=== PATIENT | female | born 1965 | race Caucasian/White ===

== ENCOUNTER 2018-08-01 02:11 | Observation (INO) | payer OTHER ==
[2018-08-01] MEDS ORDERED: ONDANSETRON 4 MG/2 ML VIAL IVP ONE (02:18)
[2018-08-01] MEDS ORDERED: NS 1,000 ML IV ONE ×2 (02:18→05:34)
--- NOTE | 2018-08-01 02:18 | EDPHY ---
H & P Time Seen by Provider: 08/01/18 02:18 HPI/ROS: HPI CHIEF COMPLAINT: Nausea vomiting right upper quadrant abdominal pain, epigastric abdominal pain after eating a hamburger. HISTORY OF PRESENT ILLNESS: 52-year-old female, otherwise healthy however has had a history of thyroid disease, presents emergency room epigastric right upper quadrant abdominal pain. This started around 530 this evening after eating a hamburger. It is now 230 in the morning. Patient arrived to the emergency room complaining of 9/10 epigastric right upper quadrant abdominal pain is rather constant. She had nausea vomiting earlier tonight multiple episodes. No blood. Denies fever. Denies chest pain or shortness of breath main complaint epigastric right upper quadrant abdominal pain. Patient states that she does not typically eat meat however she went to [employer] and bought hamburger meat, she then cooked it on her stove and then put avocados slices over ate it. This around this around 5-530. Shortly after she started developing pain nausea vomiting. She arrives to the emergency room at 2:30 a.m. In the morning as the pain has continued. Past Medical History: Thyroid disease Past Surgical History: Parotid surgery, hysterectomy Social History: Denies drugs alcohol tobacco. Family History: Noncontributory ROS REVIEW OF SYSTEMS: 10 Systems were reviewed and negative with the exception of the elements mentioned in the history of present illness. Exam Constitutional triage nursing summary reviewed, vital signs reviewed, awake/ alert. Eyes normal conjunctivae and sclera, EOMI, PERRLA. HENT normal inspection, atraumatic, moist mucus membranes, no epistaxis, neck supple/ no meningismus, no raccoon eyes. Respiratory clear to auscultation bilaterally, normal breath sounds, no respiratory distress, no wheezing. Cardiovascular rate normal, regular rhythm, no murmur, no edema, distal pulses normal. Gastrointestinal mild tender palpation right upper quadrant, epigastric, reproducible on exam, no rebound, no guarding, normal bowel sounds, no distension, no pulsatile mass. Genitourinary no CVA tenderness. Musculoskeletal no midline vertebral tenderness, full range of motion, no calf swelling, no tenderness of extremities, no meningismus, good pulses, neurovascularly intact. Skin pink, warm, & dry, no rash, skin atraumatic. Neurologic awake, alert and oriented x 3, AAOx3, moves all 4 extremities equally, motor intact, sensory intact, CN II-XII intact, normal cerebellar, normal vision, normal speech. Psychiatric normal mood/affect. Heme/Lymph/Immune no lymphadenopathy. Differential Diagnosis: Differential diagnosis includes but is not limited to and in no particular order: Bowel obstruction, appendicitis, gallbladder disease, diverticulitis, colitis, enteritis, perforated viscus, gastritis, GERD , esophagitis, urinary tract infection, pyelonephritis, kidney stones Medical Decision Making: Plan for this patient IV establishment IV fluid bolus , IV Zofran for nausea, IV Dilaudid 0.5 mg for pain control, ultrasound right upper quadrant rule out gallbladder disease, check lipase, LFTs, bilirubin, CBC , chemistry, urine, EKG and point care trop I think this is unlikely to be acute coronary syndrome given her reproducible abdominal pain on exam. Will re- evaluate. Re-evaluation: EKG interpretation by me on record in [facility] system. Impression time of EKG 2:32 a.m., sinus rhythm rate of 64 no signs of acute ischemia. Ultrasound called to me by Dr. Bruner. For limited meter dilated gallbladder wall with gallbladder distension trace fluid, possible acalculous cholecystitis. No significant stranding or inflammation around the gallbladder, no gallstones, no significant wall thickening. Patient re-evaluated at 3:42 a.m. Patient still has right upper quadrant abdominal pain 0529: This patient continues to have ongoing right upper quadrant abdominal pain. She has been monitored here multiple hours in the emergency room and continues to have intermittent abdominal pain. He gets better with IV pain medicine and then returns. She has not had a fever here no vomiting. The ultrasound is concerning for acalculous acute cholecystitis. I will consult surgery. IV Invanz ordered. Another dose of IV Dilaudid. Patient has had 2 L of fluid. NPO. Plan for admission for possible acalculous cholecystitis. I consult Dr. Giron 0533 a.m.. Requesting admission to himself. As well as HIDA scan. Patient be admitted to him med surgical. HIDA scan ordered. IV Invanz ordered. IV Dilaudid for pain control. Updated patient she agrees. Source: Patient Constitutional: Initial Vital Signs Temperature (C) 36.2 C 08/01/18 02:16 Heart Rate 72 08/01/18 02:16 Respiratory Rate 16 08/01/18 02:16 Blood Pressure 141/82 H 08/01/18 02:16 O2 Sat (%) 98 08/01/18 02:16 O2 Delivery Mode Room Air Allergies/Adverse Reactions: gluten Allergy (Verified 08/01/18 02:15) Milk Containing Products [dairy] Allergy (Verified 08/01/18 02:15) Home Medications: Medication Instructions Recorded Cholecalciferol Vit D3 [Vitamin D3 1,000 units PO DAILY 08/01/18 (*)] Estradiol [Estradiol 1 MG (*)] 1 mg PO DAILY@12 08/01/18 Herbals/Supplements -Info Only 1 each PO DAILY 08/01/18 Levothyroxine [Synthroid 50 mcg 50 mcg PO DAILY06 08/01/18 (*)] Multivitamins [Multivitamin (*)] 1 each PO DAILY 08/01/18 Selenium [Selenium 200mcg (*)] 200 mcg PO DAILY 08/01/18 Medical Decision Making - Diagnostics Imaging Results: Imaging Impressions Abdomen Ultrasound 08/01/18 02:27 Impression: Gallbladder is distended with mild gallbladder wall thickening and pericholecystic fluid. No cholelithiasis. Potentially, this could be acalculous cholecystitis. Results called and discussed with Del Yan MD on 08/01/2018 at 0331 hours. - Data Points Laboratory Results: Laboratory Results 08/01/18 02:30 08/01/18 02:30 Medications Given: Discontinued Medications Hydromorphone HCl (Dilaudid) 0.5 mg IVP EDNOW ONE Stop: 08/01/18 02:28 Last Admin: 08/01/18 02:32 Dose: 0.5 mg Hydromorphone HCl (Dilaudid) 0.5 mg IVP EDNOW ONE Stop: 08/01/18 03:34 Last Admin: 08/01/18 03:34 Dose: 0.5 mg Hydromorphone HCl (Dilaudid) 0.5 mg IVP EDNOW ONE Stop: 08/01/18 05:29 Last Admin: 08/01/18 05:40 Dose: 0.5 mg Sodium Chloride (Ns) 1,000 mls @ 0 mls/hr IV EDNOW ONE; Wide Open PRN Reason: Protocol Stop: 08/01/18 02:19 Last Admin: 08/01/18 02:27 Dose: 1,000 mls Ertapenem 1 gm/ Sodium (Chloride) 100 mls @ 200 mls/hr IV EDNOW ONE PRN Reason: Protocol Stop: 08/01/18 05:57 Last Admin: 08/01/18 06:21 Dose: 100 mls Sodium Chloride (Ns) 1,000 mls @ 0 mls/hr IV ONCE ONE PRN Reason: Wide Open Stop: 08/01/18 05:35 Last Admin: 08/01/18 05:38 Dose: 1,000 mls Ketorolac Tromethamine (Toradol) 15 mg IVP Q6H ELAINE Stop: 08/06/18 08:59 Last Admin: 08/01/18 15:43 Dose: 15 mg Ondansetron HCl (Zofran) 4 mg IVP EDNOW ONE Stop: 08/01/18 02:19 Last Admin: 08/01/18 02:27 Dose: 4 mg Ondansetron HCl (Zofran) 4 mg IVP Q4HRS PRN PRN Reason: Nausea/Vomiting, Can't Take PO Stop: 01/28/19 08:32 Last Admin: 08/01/18 15:42 Dose: 4 mg Point of Care Test Results: Chemistry 08/01/18 02:35 POC Troponin I 0.00 ng/mL ng/mL (0.00-0.08) Departure - Departure Disposition: [facility] Inpatient Acute Clinical Impression: Acute cholecystitis Abdominal pain Qualifiers: Abdominal location: unspecified location Qualified Code(s): R10.9 - Unspecified abdominal pain Condition: Good
[2018-08-01] MEDS ORDERED: HYDROmorphONE/DILAUDID 2 MG/ML INJ IVP ONE ×3 (02:27→05:28)
[2018-08-01 02:42] LABS: PLATELET COUNT 192 10^3/uL (150-400)
[2018-08-01 02:49] LABS: INR 0.87 (0.83-1.16); PROTIME(PATIENT) 12.1 SEC (12.0-15.0)
[2018-08-01] MEDS ORDERED: HYDROmorphONE/DILAUDID 1 MG/ML INJ ONE (03:31)
[2018-08-01] MEDS ORDERED: ERTAPENEM 1 GM in NS 100 ML IV ONE (05:28)
[2018-08-01] MEDS: ONDANSETRON 4 MG/2 ML VIAL IVP PRN ×2 (08:51→15:42)
[2018-08-01] MEDS: KETOROLAC 15 MG/1 ML SDV IVP SCH ×2 (09:08→15:43)
[2018-08-01 11:12] VITALS: BP 115/72
[2018-08-01] MEDS ORDERED: KETOROLAC 15 MG/1 ML SDV IVP SCH (12:00)
--- NOTE | 2018-08-01 12:32 | GHP ---
DATE OF ADMISSION: 08/01/2018 CHIEF COMPLAINT: Epigastric and right upper quadrant pain. HISTORY OF PRESENT ILLNESS: This is a 52-year-old female, who presented early this morning with 9/10 epigastric and right upper quadrant pain. This was triggered after eating a hamburger. She also re ports nausea and vomiting earlier in the night. She denies fever. She denies constipation, diarrhea . An abdominal ultrasound revealed a distended gallbladder with mild gallbladder wall thickening and pericholecystic fluid. No cholelithiasis. Potentially, this could be acalculous cholecystitis. PAST MEDICAL HISTORY: Hypothyroidism. PAST SURGICAL HISTORY: Parathyroidectomy, hysterectomy. SOCIAL HISTORY: The patient is a nonsmoker and denies recreational drug use. FAMILY HISTORY: Noncontributory. ALLERGIES: Gluten and milk. MEDICATIONS: Levothyroxine. REVIEW OF SYSTEMS: Ten-point review of systems was performed and is negative, aside from what is in the HPI. PHYSICAL EXAM: GENERAL: Well-appearing female lying in hospital bed, in no acute distress. HEENT: Pupils are equal and round. Head is normocephalic, atraumatic. Mucous membranes are moist. No navya ss hearing deficits. CARDIAC: Regular rate and rhythm, no click, murmurs, or rubs. RESPIRATORY: C lear to auscultation bilaterally. No increased work of breathing. ABDOMEN: Soft, tender to palpati on in the right upper quadrant and epigastric area, normoactive bowel sounds. MUSCULOSKELETAL: Move s all extremities equally. SKIN: Warm and dry, no rash, no jaundice. NEUROLOGIC: Awake, alert, an d oriented x3. PSYCHIATRIC: Appropriate mood and affect. IMPRESSION/PLAN: This is a patient, who presented with epigastric and right upper quadrant pain very early this morning. Abdominal ultrasound revealed mild gallbladder wall thickening and pericholecys tic fluid, however, did not reveal definitive cholelithiasis. We would like her to have a HIDA scan to further differentiate that this is her gallbladder that is causing her pain. Because she had Dila udid at 5:30 a.m. this morning, the HIDA scan will take place at approximately 1:30 p.m. this afterno on. We then plan to take her to the operating room for a laparoscopic cholecystectomy. All risks an d options have been discussed. Risks of surgery include, but are not limited to, infection, bleeding , damage to surrounding structures, including the bile duct and bowel, heart attack, and . Linda ent understands and wishes to proceed. /[id number]/MODL
[2018-08-01] MEDS ORDERED: cefOXitin SODIUM 2 GM in NS 100 ML IV ONE (14:30)
--- NOTE | 2018-08-01 16:33 | ASMTCMCOM ---
CM Note CM Note Notes: 08/01/2018 Case Management Note Pt admitted for RUQ abdominal pain with plan for cholecystectomy. Met w/pt to discuss discharge needs. There are no case management d/c needs identified d/t pt age, strong family support system, employment status and independence with ADL's prior to admission. Pt boyfriend is Unruly Santo [phone]. Case Managment d/c poc: independent with follow up as directed. Case Management available if needs change. Date Signed: 08/01/2018 04:32 PM Electronically Signed By:Maria T Shields RN
--- NOTE | 2018-08-01 17:42 | SOAPPROG ---
SOAP Progress Note Assessment/Plan: Assessment: DOING MUCH BETTER THIS P.M. WITH NO PAIN AT ALL IN NO FEVER AND NO ICTERUS HIDA SCAN WAS NOT COMPLETELY CONCLUSIVE AND SHE WAS UNABLE TO DO THE EJECTION FRACTION TEST ABDOMEN SOFT NONTENDER/CHEST CLEAR/COR REGULAR RHYTHM/HEENT NONICTERIC IN THE FACE OF IMPROVED SYMPTOMS AND LACK OF GALLSTONES AND SOME FILLING ON HIDA SCAN WILL POSTPONE SURGERY AND TREAT CONSERVATIVELY RISKS AND OPTIONS FULLY DISCUSSED INCLUDING RECURRENCE OF SYMPTOMS AND EVENTUAL NEED FOR CHOLECYSTECTOMY Plan: CLEAR LIQUIDS/HOME ON ORAL ANTIBIOTICS/FOLLOW-UP IN THE OFFICE NEXT WEEK 08/01/18 17:37 Objective: Vital Signs Temp Pulse Resp BP Pulse Ox 36.5 C 63 18 115/72 95 08/01/18 11:08 08/01/18 11:08 08/01/18 11:08 08/01/18 11:08 08/01/18 11:08 07/31/18 08/01/18 08/02/18 05:59 05:59 05:59 Intake Total 1999 Balance 1999 PT 12.1 SEC (12.0-15.0) 08/01/18 02:30 INR 0.87 (0.83-1.16) 08/01/18 02:30 ICD10 Worksheet Patient Problems: Problems Problem Status Onset Abdominal pain Acute Acute cholecystitis Acute
--- NOTE | 2018-08-02 08:56 | CPEKG ---
Test Reason : OPEN Blood Pressure : / mmHG Vent. Rate : 064 BPM Atrial Rate : 064 BPM P-R Int : 193 ms QRS Dur : 120 ms QT Int : 469 ms P-R-T Axes : 055 036 055 degrees QTc Int : 484 ms Sinus rhythm Nonspecific intraventricular conduction delay Confirmed by Del Yan ([id number]) on 08/02/2018 8:55:57 AM Referred By: Confirmed By:Del Yan
== END 2018-08-01 18:47 | disposition home or self-care (01) ==
LOC: MERGE 05:32 → UNMERGE 05:32 → F2W 06:28
PROVIDERS: ADMIT Surgery; ATTEND Surgery
DX: R10.11 Right upper quadrant pain (principal); R10.13 Epigastric pain
CPT/HCPCS: 76705; 78226; 93005; A9537; G0378; 84484-PO; 96374; J0694; J1170; J1335; J1885; J2405

== ENCOUNTER 2018-09-13 14:20 | Emergency (ER) | payer OTHER ==
[2018-09-13] MEDS ORDERED: NS 1,000 ML IV ONE (15:08)
[2018-09-13] MEDS ORDERED: ONDANSETRON 4 MG/2 ML VIAL IVP ONE (15:08)
--- NOTE | 2018-09-13 15:14 | EDPHY ---
H & P Stated Complaint: Abdo pain, same as gallbladder pain. Time Seen by Provider: 09/13/18 15:11 HPI/ROS: HPI: This is a 53-year-old female who presents with Chief Complaint: Abdo pain, same as gallbladder pain. Location: Epigastric and right upper quadrant Quality: Pain Duration: Since last night Signs and Symptoms: no fever, + nausea, no vomiting, no hematemesis, no blood in stool, no abdominal bloating, no diarrhea, no back pain, no urinary symptoms , no vaginal bleeding/discharge, no indigestion, no chest pain, no shortness of breath Timing: Acute, constant Severity: 03/28 Context: Patient reports that yesterday evening she started to experience burning and sharp constant pain in her epigastric and right upper quadrant. She reports that her stomach "does not feel right."She believes that this is similar to last month when she had her "gallbladder attack." Patient reports that she advised by low-fat diet. Chart review shows that she was seen here on 08/01/2018 with an admission unable to obtain HIDA scan as allergy to contrast and ultrasound showed possibility of acalculous cholecystitis. Patient took Zofran and last night to avoid of vomiting which helped relieved her nausea. Modifying Factors: Low-fat diet and Zofran Comment: ROS: A comprehensive 10 system review of systems is otherwise negative aside from elements mentioned in the history of present illness. MEDICAL/SURGICAL/SOCIAL HISTORY: Medical/Surgical history: HYSTERECTOMY, HASHIMOTOS-synthroid, L PAROTID GLAND REMOVAL. Social history: Never smoked. Family history noncontributory. CONSTITUTIONAL: Moderate distress, well-developed, well-nourished middle-aged white female, awake and alert, nontoxic in appearance HEENT: Atraumatic and normocephalic, PERRL, EOMI. Nares patent; no rhinorrhea; no nasal mucosal edema. Tympanic membranes clear. Oropharynx clear, no exudate and moist pink mucosa. Airway patent. No lymphadenopathy. No meningismus. Cardiovascular: Normal S1/S2, regular rate, regular rhythm, without murmur rub or gallop. PULMONARY/CHEST: Symmetrical and nontender. Clear to auscultation bilaterally. Good air movement. No accessory muscle usage. ABDOMEN: Soft, nondistended, moderate right upper quadrant tenderness and epigastric tenderness, no rebound, no guarding, no peritoneal signs, no masses or organomegaly. No CVAT. EXTREMITIES: 2/2 pulses, strength 5/5, no deformities, no clubbing, no cyanosis or edema. NEUROLOGICAL: no focal neuro deficits. GCS 15. SKIN: Warm and dry, no erythema. no rash. Good capillary refill. Source: Patient, Old records Exam Limitations: No limitations - Personal History Current Tetanus/Diphtheria Vaccine: Unsure Current Tetanus Diphtheria and Acellular Pertussis (TDAP): Unsure Tetanus Vaccine Date: 05/2010 - Medical/Surgical History Hx Asthma: No Hx Chronic Respiratory Disease: No Hx Diabetes: No Hx Cardiac Disease: No Hx Renal Disease: No Hx Cirrhosis: No Hx Alcoholism: No Hx HIV/AIDS: No Hx Splenectomy or Spleen Trauma: No Other PMH: HYSTERECTOMY, HASHIMOTOS-synthroid, L PAROTID GLAND REMOVAL. - Social History Smoking Status: Never smoked Constitutional: Initial Vital Signs Temperature (C) 36.4 C 09/13/18 14:45 Heart Rate 48 L 09/13/18 14:45 Respiratory Rate 16 09/13/18 14:45 Blood Pressure 123/78 H 09/13/18 14:45 O2 Sat (%) 97 09/13/18 14:45 O2 Delivery Mode Room Air Allergies/Adverse Reactions: gluten Allergy (Verified 09/13/18 14:44) Milk Containing Products [dairy] Allergy (Verified 09/13/18 14:44) Home Medications: Medication Instructions Recorded NK [No Known Home Meds] 06/12/14 Cholecalciferol Vit D3 [Vitamin D3 1,000 units PO DAILY 08/01/18 (*)] Estradiol [Estradiol 1 MG (*)] 1 mg PO DAILY@12 08/01/18 Herbals/Supplements -Info Only 1 each PO DAILY 08/01/18 Levothyroxine [Synthroid 50 mcg 50 mcg PO DAILY06 08/01/18 (*)] Multivitamins [Multivitamin (*)] 1 each PO DAILY 08/01/18 Selenium [Selenium 200mcg (*)] 200 mcg PO DAILY 08/01/18 Ondansetron Odt [Zofran Odt 4 mg 4 mg PO Q4 PRN #12 tab 09/13/18 (*)] oxyCODONE/APAP 5/325 [Percocet 1 - 2 tab PO Q4H PRN #12 tab 09/13/18 5/325 (*)] Medical Decision Making - Diagnostics Imaging Results: Imaging Impressions Abdomen Ultrasound 09/13/18 15:11 Impression: 1. Chronic distention of the gallbladder without gallbladder wall thickening and pericholecystic fluid without gallstones. Ejection fraction from previous HIDA scan cannot be performed secondary to patient's food ALLERGY. Consider gallbladder wall dysmotility or chronic cholecystitis. ED Course/Re-evaluation: Vital signs reviewed and stable. No systemic signs. IV access, laboratory studies, ultrasound ordered Patient given 1 L normal saline, IV morphine 6 mg, IV Zofran 1555: Labs reviewed. No signs of leukocytosis/anemia/platelet dysfunction/JOHN/ elevated LFTs/electrolyte imbalance/pancreatitis. 1638: Called by Dr. Cral, radiologist, who reports ultrasound is similar to the one in July with not thickened gallbladder wall, + pericholecystic fluid , + distended gallbladder consistent with chronic cholecystitis versus gallbladder dysmotility 1639: Long discussion with patient regarding decision to consult surgery for cholecystectomy. After discussing the risks of cholecystitis, sepsis, perforation, reports that she is feeling better. She reports that her laboratory studies are within normal limits and the ultrasound is the same as last month. She reports after discussion with her to be discharged home with more Zofran and pain medications and will call Dr. Giron on Saturday to have her gallbladder removed outpatient. Extremely concerned about the financial strain of emergent surgery. She reports that she has no pain at this time. ED decision to consult surgery canceled. This patient was seen under the supervision of my secondary supervising physician. I evaluated care for this patient independently. Discussed this patient with Dr. Alonso who did not see the patient. Differential Diagnosis: Abdominal pain including but not limited to appendicitis, cholecystitis, gastritis and urinary tract infection. - Data Points Laboratory Results: Laboratory Results 09/13/18 15:25 09/13/18 15:25 09/13/18 09/13/18 09/13/18 15:25 15:25 15:25 WBC 7.41 10^3/uL 10^3/uL (3.80-9.50) RBC 4.75 10^6/uL 10^6/uL (4.18-5.33) Hgb 13.9 g/dL g/dL (12.6-16.3) Hct 42.5 % % (38.0-47.0) MCV 89.5 fL fL (81.5-99.8) MCH 29.3 pg pg (27.9-34.1) MCHC 32.7 g/dL g/dL (32.4-36.7) RDW 13.0 % % (11.5-15.2) Plt Count 184 10^3/uL 10^3/uL (150-400) MPV 10.2 fL fL (8.7-11.7) Neut % (Auto) 73.8 % % (39.3-74.2) Lymph % (Auto) 17.4 % % (15.0-45.0) [place] % (Auto) 7.2 % % (4.5-13.0) Eos % (Auto) 1.1 % % (0.6-7.6) Baso % (Auto) 0.4 % % (0.3-1.7) Nucleat RBC Rel Count 0.0 % % (0.0-0.2) Absolute Neuts (auto) 5.47 10^3/uL 10^3/uL (1.70-6.50) Absolute Lymphs (auto) 1.29 10^3/uL 10^3/uL (1.00-3.00) Absolute Monos (auto) 0.53 10^3/uL 10^3/uL (0.30-0.80) Absolute Eos (auto) 0.08 10^3/uL 10^3/uL (0.03-0.40) Absolute Basos (auto) 0.03 10^3/uL 10^3/uL (0.02-0.10) Absolute Nucleated RBC 0.00 10^3/uL 10^3/uL (0-0.01) Immature Gran % 0.1 % % (0.0-1.1) Immature Gran # 0.01 10^3/uL 10^3/uL (0.00-0.10) Sodium 139 mEq/L mEq/L (135-145) Potassium 3.9 mEq/L mEq/L (3.5-5.2) Chloride 106 mEq/L mEq/L (97-110) Carbon Dioxide 25 mEq/l mEq/l (22-31) Anion Gap 8 mEq/L mEq/L (6-14) BUN 12 mg/dL mg/dL (7-23) Creatinine 0.8 mg/dL mg/dL (0.6-1.0) Estimated GFR > 60 Glucose 127 mg/dL H mg/dL (70-100) Calcium 8.9 mg/dL mg/dL (8.5-10.4) Total Bilirubin 0.5 mg/dL mg/dL (0.1-1.4) Conjugated Bilirubin 0.3 mg/dL mg/dL (0.0-0.5) Unconjugated Bilirubin 0.2 mg/dL mg/dL (0.0-1.1) AST 28 IU/L IU/L (14-46) ALT 25 IU/L IU/L (9-52) Alkaline Phosphatase 60 IU/L IU/L (38-126) Total Protein 7.0 g/dL g/dL (6.3-8.2) Albumin 4.3 g/dL g/dL (3.5-5.0) Lipase 112 IU/L IU/L (23-300) Beta HCG, Qual NEGATIVE Medications Given: Discontinued Medications Sodium Chloride (Ns) 1,000 mls @ 0 mls/hr IV EDNOW ONE; Wide Open PRN Reason: Protocol Stop: 09/13/18 15:09 Last Admin: 09/13/18 15:42 Dose: 1,000 mls Morphine Sulfate (Morphine) 6 mg IVP EDNOW ONE Stop: 09/13/18 15:09 Last Admin: 09/13/18 15:42 Dose: 6 mg Ondansetron HCl (Zofran) 4 mg IVP EDNOW ONE Stop: 09/13/18 15:09 Last Admin: 09/13/18 15:42 Dose: 4 mg Departure - Departure Disposition: Home, Routine, Self-Care Clinical Impression: Gallbladder attack, Dyskinesia of gallbladder Condition: Good Instructions: Biliary Colic (ED), Low Fat Diet (ED), Laparoscopic Cholecystectomy (DC) Additional Instructions: Consume a minimum of 8-10 glasses of water or electrolyte fluid replacement drinks that include Gatorade, Powerade, Pedialyte. Eat a bland diet for the next 48 hours and then slowly advance as tolerated. Take Zofran 1 tab every 4 hours as needed for nausea, vomiting. Take Percocet 1-2 tabs every 4-6 hours as needed for severe/breakthrough pain. Called Dr. Giron office on Saturday to schedule an appointment in the next 2-3 days to discuss removal of gallbladder. Return to the Emergency Room if symptoms do not resolve in the next 48-72 hours , you spike a fever > 102 F, or experience intractable abdominal pain/nausea/ vomiting. Referrals: KITTY BAHENA [Primary Care Provider] - As per Instructions Brett Giron MD [Medical Doctor] - As per Instructions Prescriptions: Ondansetron Odt [Zofran Odt 4 mg (*)] 4 mg PO Q4 PRN #12 tab PRN Reason: Nausea/Vomiting, Use 1st oxyCODONE/APAP 5/325 [Percocet 5/325 (*)] 1 - 2 tab PO Q4H PRN #12 tab PRN Reason: Pain, Severe
[2018-09-13 15:40] LABS: PLATELET COUNT 184 10^3/uL (150-400)
[2018-09-13] MEDS ORDERED: POLYETHYLENE GLYCOL 3350 17 GM PKT ONE (16:45)
[2018-09-13 17:12] VITALS: BP 122/78
== END 2018-09-13 17:11 | disposition home or self-care (01) ==
DX: K82.8 Other specified diseases of gallbladder (principal); E86.9 Volume depletion, unspecified
CPT/HCPCS: 96374; J2270; J2405

== ENCOUNTER → 2018-09-18 | Outpatient (CLI) | payer OTHER ==
[~2018-09-18] MED LIST: SINCALIDE 5 MCG VIAL IV ONE
== END ==
LOC: FIMAGING 11:14
PROVIDERS: ATTEND Surgery
DX: R10.11 Right upper quadrant pain (principal)
CPT/HCPCS: A9537; J2805

== ENCOUNTER 2019-01-03 15:10 | Emergency (ER) | payer OTHER ==
[2019-01-03 15:18] VITALS: BP 144/76
[2019-01-03] MEDS ORDERED: TDAP ADULT 0.5 ML INJ (BOOSTRIX) IM ONE (15:27)
--- NOTE | 2019-01-03 15:27 | EDPHY ---
H & P Stated Complaint: R finger lac Time Seen by Provider: 01/03/19 15:20 HPI/ROS: HPI: This is a 53-year-old female who presents with Chief Complaint: Right little finger laceration Location: Right little finger Quality: Laceration Duration: Prior to arrival Signs and Symptoms: +bleeding, no radiation, no numbness, no weakness, no tingling, no incontinence, no decreased range of motion, no swelling, + pain, no fever Timing: Acute Severity: Moderate Context: Patient is right-hand dominant, and accidentally cut her right pinky finger while using a mandoline cutting squash prior to arrival. She reports that she felt immediate, constant pain that was nonradiating in nature. It immediately started to bleed and she applied direct pressure. She went to urgent care and they sent her to the emergency room for further evaluation. Unsure of tetanus status. Modifying Factors: Direct pressure Comment: ROS: A comprehensive 10 system review of systems is otherwise negative aside from elements mentioned in the history of present illness. MEDICAL/SURGICAL/SOCIAL HISTORY: Medical history: HASHIMOTOS-synthroid Surgical history: Hysterectomy, left parotid gland removal Social history: Nonsmoker. . Employed. CONSTITUTIONAL: Well-developed, well-nourished adult white female, awake and alert, no obvious distress HEENT: Atraumatic and normocephalic, PERRL, EOMI. Nares patent; no rhinorrhea; no nasal mucosal edema. Tympanic membranes clear. Oropharynx clear, no exudate and moist pink mucosa. Airway patent. No lymphadenopathy. No meningismus. Cardiovascular: Normal S1/S2, regular rate, regular rhythm, without murmur rub or gallop. PULMONARY/CHEST: Symmetrical and nontender. Clear to auscultation bilaterally. Good air movement. No accessory muscle usage. ABDOMEN: Soft, nondistended, nontender, no rebound, no guarding, no peritoneal signs, no masses or organomegaly. No CVAT. EXTREMITIES: 2/2 radial pulses, audio/visual manager strength 5/5, right little finger on the lateral aspect shows C-shaped 1.5 cm simple, superficial laceration-no active bleeding. DI P, PIP, MCP joints have full range of flexion extension. no clubbing, no cyanosis, no edema. NEUROLOGICAL: no focal neuro deficits. GCS 15. SKIN: Warm and dry, no erythema. no rash. Good capillary refill. Source: Patient Exam Limitations: No limitations - Personal History Current Tetanus/Diphtheria Vaccine: Unsure Current Tetanus Diphtheria and Acellular Pertussis (TDAP): Unsure Tetanus Vaccine Date: 05/2010 - Medical/Surgical History Hx Asthma: No Hx Chronic Respiratory Disease: No Hx Diabetes: No Hx Cardiac Disease: No Hx Renal Disease: No Hx Cirrhosis: No Hx Alcoholism: No Hx HIV/AIDS: No Hx Splenectomy or Spleen Trauma: No Other PMH: HYSTERECTOMY, HASHIMOTOS-synthroid, L PAROTID GLAND REMOVAL. - Social History Smoking Status: Never smoked Constitutional: Initial Vital Signs Temperature (C) 37.0 C 01/03/19 15:16 Heart Rate 81 01/03/19 15:16 Respiratory Rate 18 01/03/19 15:16 Blood Pressure 144/76 H 01/03/19 15:16 O2 Sat (%) 97 01/03/19 15:16 O2 Delivery Mode Room Air Allergies/Adverse Reactions: gluten Allergy (Verified 09/13/18 14:44) Milk Containing Products [dairy] Allergy (Verified 09/13/18 14:44) Home Medications: Medication Instructions Recorded Estradiol 01/03/19 Thyroid 01/03/19 Medical Decision Making Procedures: Procedure: Laceration repair. Verbal consent was obtained from the patient. The 1.5 cm, superficial, C-shaped , simple laceration on the right pinky finger was anesthetized in the usual fashion using 2 mL 1% lidocaine without epinephrine. The wound was irrigated, draped and explored to its base with a gloved finger. There were no deep structures involved. No tendon injury was identified. The wound was repaired with #4, 5-0 Prolene in simple interrupted pattern. Good hemostasis was achieved and patient tolerated procedure well. Xeroform and clean sterile dressing applied. The procedure was performed by myself. ED Course/Re-evaluation: Vital signs reviewed and stable upon arrival. Tetanus booster given Local anesthesia provided irrigated copiously Laceration repaired with 4 nonabsorbable sutures Xeroform and clean sterile dressing applied Verbal and written wound care instructions provided No signs of neurovascular compromise/tenting of skin/compartment syndrome/ extremities and joints examined above and below area of concern and are neurovascularly intact. This patient was seen under the supervision of my secondary supervising physician. I evaluated and cared for this patient independently. Differential Diagnosis: Differential diagnosis includes but is not limited to laceration, nail injury, nerve injury, tendon injury, foreign body. Departure - Departure Disposition: Home, Routine, Self-Care Clinical Impression: Laceration with foreign body of right little finger with damage to nail, initial encounter Condition: Good Instructions: Care For Your Stitches (ED), Finger Laceration (ED) Additional Instructions: Keep the dressing dry and in place for 48 hours. After 48 hours, you may remove the dressing; wash the site daily with mild soap and water; then pat dry. Apply topical antibiotic ointment and keep covered with sterile dressing until fully healed. Do not soak in a bathtub or go swimming until sutures are removed. Take Tylenol 650 mg every 4 hours and/or Ibuprofen 600 mg every 8 hours with food as needed for pain. Wound Care Follow-Up: Removal of sutures in [10] days. Suture removal is complimentary in uncomplicated cases. Infection or abnormal findings would require reevaluation by the MD. In that case, you may be billed. Referrals: NOLAN THAO [Primary Care Provider] - As per Instructions Long Mo MD [Medical Doctor] - Follow Up Only If Needed
== END 2019-01-03 16:04 | disposition home or self-care (01) ==
PROC: 0HQFXZZ Repair Right Hand Skin, External Approach (ICD-10-PCS; principal; 2019-01-03)
DX: S61.316A Laceration without foreign body of right little finger with damage to nail, initial encounter (principal); Z23 Encounter for immunization; W26.0XXA Contact with knife, initial encounter; Y93.G1 Activity, food preparation and clean up; Y92.000 Kitchen of unspecified non-institutional (private) residence as the place of occurrence of the external cause